=== PATIENT | female | born 1990 | race Caucasian/White ===

== ENCOUNTER → 2018-08-28 | Outpatient (CLI) | payer OTHER ==
[~2018-08-28] MED LIST: Pepcid40 MG PO
[2018-08-28 18:27] LABS: Bilirubin, Urine Neg (Neg); Blood, Urine Neg (Neg); Glucose Qualitative, Urine Neg (Neg); Ketones, Urine Neg (Neg); Leukocyte Esterase, Urine Neg (Neg); Nitrite, Urine Neg (Neg); Protein, Urine Neg (Neg); Urobilinogen, Urine NORM (Normal); pH, Urine 6.5 (5.0-8.0)
[2018-08-28 18:45] LABS: Appearance, Urine Clear (Clear); Color, Urine Yellow (P-Yellow)
== END ==
LOC: LAB SHORT 17:43 → LAB 17:43
PROVIDERS: Registered Nurse Community Health
DX: Z34.91 Encounter for supervision of normal pregnancy, unspecified, first trimester (principal)
CPT/HCPCS: 81003; 87086

== ENCOUNTER → 2018-09-22 | Outpatient (CLI) | payer OTHER ==
[2018-09-24 02:17] LABS: CHLAMYDIA TRACHOMATIS, NAA Negative (Negative); NEISSERIA GONORRHOEAE, NAA Negative (Negative)
== END ==
LOC: LAB SHORT 11:53 → LAB 11:53
PROVIDERS: Registered Nurse Community Health
DX: Z12.4 Encounter for screening for malignant neoplasm of cervix (principal); Z11.3 Encounter for screening for infections with a predominantly sexual mode of transmission; N89.8 Other specified noninflammatory disorders of vagina; R82.998 Other abnormal findings in urine
CPT/HCPCS: 87070; 87077; 87086; 87186; 87205; 87491; 87591; G0123

== ENCOUNTER → 2018-10-05 | Outpatient (CLI) | payer OTHER ==
[2018-10-05 19:13] LABS: CHOL/HDL RATIO 3.5; Cholesterol 234 mg/dL (50-200); HDL Cholesterol 67 mg/dL (>39); LDL/HDL RATIO 2.2; Low Density Lipoprotein Chol 144 mg/dL (0-110); Triglycerides 113 mg/dL (30-140); Very Low Density Lipoprot Chol 22 mg/dL (6-28)
== END ==
LOC: LAB SHORT 09:00 → LAB 09:00
PROVIDERS: Registered Nurse Community Health
DX: Z13.220 Encounter for screening for lipoid disorders (principal)
CPT/HCPCS: 80061

== ENCOUNTER → 2019-03-25 | Outpatient (CLI) | payer OTHER ==
[~2019-03-25] MED LIST changes: +Percocet 5-3251 EACH PO
== END ==
LOC: LAB SHORT 13:56 → LAB 13:56
DX: Z34.93 Encounter for supervision of normal pregnancy, unspecified, third trimester (principal)
CPT/HCPCS: 87081; 87653

== ENCOUNTER 2019-04-20 20:18 | Inpatient (IN) | payer OTHER ==
[~2019-04-20] VITALS: Ht 172.7 cm; Wt 115.5 kg
[~2019-04-20 20:18] MED LIST changes: -Percocet 5-3251 EACH PO
[2019-04-20 21:04] LABS: BASOPHILS ABSOLUTE AUTO 0.02 K/mm3 (0.00-0.23); BASOPHILS PERCENT AUTO 0 % (0-2); EOSINOPHILS ABSOLUTE AUTO 0.07 K/mm3 (0.00-0.68); EOSINOPHILS PERCENT AUTO 1 % (0-6); Hematocrit 33.9 % (33.0-51.0); Hemoglobin 11.3 g/dL (11.5-16.0); IMMATURE GRAN ABSOLUTE AUTO 0.05 K/mm3 (0.00-0.10); IMMATURE GRAN PERCENT AUTO 0 % (0-1); LYMPHOCYTES ABSOLUTE AUTO 2.53 K/mm3 (0.84-5.20); LYMPHOCYTES PERCENT AUTO 21 % (21-46); MONOCYTES ABSOLUTE AUTO 0.74 K/mm3 (0.16-1.47); MONOCYTES PERCENT AUTO 6 % (4-13); Mean Corpuscular HGB 31.1 pg (26.0-34.0); Mean Corpuscular HGB Conc 33.3 g/dL (31.5-36.5); Mean Corpuscular Volume 93 fL (80-100); Mean Platelet Volume 11.6 fL (9.1-12.4); NEUTROPHILS PERCENT AUTO 72 % (41-73); Platelet Count 256 K/mm3 (150-400); RDW Standard Deviation 44.6 fL (35.1-46.3); Red Blood Cell Count 3.63 M/mm3 (3.80-5.20); White Blood Cell Count 12.11 K/mm3 (4.00-11.30)
[2019-04-22 19:12] LABS: PO2 Cord - Arterial < 13 mmHg (16-20)
[2019-04-22 19:14] LABS: PCO2 Cord - Venous 50.5 mmHg (40-50); PO2 Cord - Venous 21.8 mmHg (28-32); pH Umbilical Cord - Venous 7.33 (7.26-7.35)
--- NOTE | 2019-04-22 19:14 | NUR ---
04/22/191913 Brijesh Venegas PT ARRIVED TO OR WITH EPIDURAL IN PLACE. PT ARRIVED TO OR WITH [facility] CATH IN PLACE. LOCAL WAS INJECTED IN OP SITE PRIOR TO SURGERY WHEN PT REPORTED FEELING SOME SHARPNESS WITH THE TEST. BABY GIRL WAS BORN AT 190. CORD BLOOD WAS SENT WITH [facility] MELY [place]IT[place] CORD SEGMENT WAS SENT WITH RT GANESH.
[2019-04-23 05:30] LABS: BASOPHILS ABSOLUTE AUTO 0.03 K/mm3 (0.00-0.23); BASOPHILS PERCENT AUTO 0 % (0-2); EOSINOPHILS ABSOLUTE AUTO 0.04 K/mm3 (0.00-0.68); EOSINOPHILS PERCENT AUTO 0 % (0-6); Hematocrit 31.3 % (33.0-51.0); Hemoglobin 10.4 g/dL (11.5-16.0); IMMATURE GRAN ABSOLUTE AUTO 0.11 K/mm3 (0.00-0.10); IMMATURE GRAN PERCENT AUTO 1 % (0-1); LYMPHOCYTES ABSOLUTE AUTO 2.47 K/mm3 (0.84-5.20); LYMPHOCYTES PERCENT AUTO 13 % (21-46); MONOCYTES ABSOLUTE AUTO 0.99 K/mm3 (0.16-1.47); MONOCYTES PERCENT AUTO 5 % (4-13); Mean Corpuscular HGB 31.1 pg (26.0-34.0); Mean Corpuscular HGB Conc 33.2 g/dL (31.5-36.5); Mean Corpuscular Volume 94 fL (80-100); NEUTROPHILS ABSOLUTE AUTO 15.74 K/mm3 (1.96-9.15); NEUTROPHILS PERCENT AUTO 81 % (41-73); Platelet Count 220 K/mm3 (150-400); RDW Standard Deviation 44.8 fL (35.1-46.3); Red Blood Cell Count 3.34 M/mm3 (3.80-5.20); White Blood Cell Count 19.38 K/mm3 (4.00-11.30)
--- NOTE | 2019-04-23 14:23 | NUR ---
CONSULT, ELIZABETH NOT YET 24 HOURS OLD, STILL SLEEPY. MOM STATES SHE HAS BF WELL A COUPLE TIMES. SHE IS CURRENTLY ASLEEP IN MOMS ARMS. INSTRUCT/DEMO SELF EBM TO HELP ENTICE A BETTER GAPE FOR LATCHING, AND FURTHER WIDENING LATCH IF SHE FEELS PINCHING. INSTRUCT IN CHANGES TO EXPECT DURING THE FIRST WEEK WITH FEEDINGS AND WITH BABY AND REFERRED TO BF BROCHURE AND BR BOOKLET FOR PHOTOS AND INFORMATION. PLEASED WITH HOW BF IS GOING SO FAR.
--- NOTE | 2019-04-23 18:35 | NUR ---
REPORT TO ONCOMING SHIFT
[2019-04-24] MEDS ORDERED: Percocet 5-3251 EACH PO (17:50)
--- NOTE | 2019-04-24 18:10 | NUR ---
Printed d/c instructions and packet given. Pt declines additional teaching by RN as she has had teaching by multiple RN's prior to d/c. Denies additional questions at this time. ID bands matched w/nb. No acute changes t/o shift. Pt d/c'd home ambulatory to care of family.
== END 2019-04-24 18:10 | disposition home or self-care (01) | DRG 788 ==
LOC: BC 20:18
PROVIDERS: Obstetrics & Gynecology; ADMIT Registered Nurse Community Health
PROC: 3E0P7VZ Introduction of Hormone into Female Reproductive, Via Natural or Artificial Opening (ICD-10-PCS; 2019-04-20)
PROC: 3E033VJ Introduction of Other Hormone into Peripheral Vein, Percutaneous Approach (ICD-10-PCS; 2019-04-21)
PROC: 3E0R3BZ Introduction of Anesthetic Agent into Spinal Canal, Percutaneous Approach (ICD-10-PCS; 2019-04-22)
PROC: 10D00Z1 Extraction of Products of Conception, Low, Open Approach (ICD-10-PCS; principal; 2019-04-22 18:00)
DX: O48.0 Post-term pregnancy (principal); O61.0 Failed medical induction of labor; Z3A.40 40 weeks gestation of pregnancy; Z37.0 Single live birth; O76 Abnormality in fetal heart rate and rhythm complicating labor and delivery
CPT/HCPCS: 36415; 51702; 82803; 85025; 86850; 86900; 86901; J0690; J1885; J2210; J2405; J2590; J2704; J2765; J3010; J7120

== ENCOUNTER → 2020-11-30 | Outpatient (CLI) | payer OTHER ==
[~2020-11-30] MED LIST changes: +Percocet 5-3251 EACH PO
[2020-12-02 00:09] LABS: CHLAMYDIA TRACHOMATIS, NAA Negative (Negative)
== END ==
LOC: LAB SHORT 18:30 → LAB 18:30
PROVIDERS: Registered Nurse Community Health
DX: Z34.93 Encounter for supervision of normal pregnancy, unspecified, third trimester (principal)
CPT/HCPCS: 87491; 87591

== ENCOUNTER → 2021-03-08 | Outpatient (CLI) | payer OTHER ==
[2021-03-08 13:17] LABS: Hematocrit 34.9 % (33.0-51.0); Hemoglobin 11.7 g/dL (11.5-16.0)
== END ==
LOC: LAB 12:04 → LAB SHORT 12:04
PROVIDERS: Registered Nurse Community Health
DX: Z33.1 Pregnant state, incidental (principal)
CPT/HCPCS: 36415; 82950; 85014; 85018

== ENCOUNTER → 2021-05-02 | Outpatient (CLI) | payer OTHER | LOC: LAB SHORT 14:30 → LAB 14:30 | DX: Z34.93 Encounter for supervision of normal pregnancy, unspecified, third trimester (principal) | CPT/HCPCS: 87081; 87150 ==

== ENCOUNTER 2021-05-25 05:41 | Inpatient (IN) | payer OTHER ==
[~2021-05-25] VITALS: Ht 172.7 cm; Wt 104.5 kg
[2021-05-25] MEDS ORDERED: PRENATAL TABLE1 EAC2 (06:06)
[2021-05-25 06:24] LABS: BASOPHILS ABSOLUTE AUTO 0.04 K/mm3 (0.00-0.23); BASOPHILS PERCENT AUTO 0 % (0-2); EOSINOPHILS ABSOLUTE AUTO 0.06 K/mm3 (0.00-0.68); EOSINOPHILS PERCENT AUTO 1 % (0-6); Hematocrit 37.2 % (33.0-51.0); Hemoglobin 12.5 g/dL (11.5-16.0); IMMATURE GRAN ABSOLUTE AUTO 0.05 K/mm3 (0.00-0.10); IMMATURE GRAN PERCENT AUTO 0 % (0-1); LYMPHOCYTES ABSOLUTE AUTO 2.67 K/mm3 (0.84-5.20); LYMPHOCYTES PERCENT AUTO 23 % (21-46); MONOCYTES ABSOLUTE AUTO 0.71 K/mm3 (0.16-1.47); MONOCYTES PERCENT AUTO 6 % (4-13); Mean Corpuscular HGB 30.9 pg (26.0-34.0); Mean Corpuscular HGB Conc 33.6 g/dL (31.5-36.5); Mean Corpuscular Volume 92 fL (80-100); Mean Platelet Volume 11.8 fL (9.1-12.4); NEUTROPHILS ABSOLUTE AUTO 8.14 K/mm3 (1.96-9.15); NEUTROPHILS PERCENT AUTO 70 % (41-73); Platelet Count 243 K/mm3 (150-400); RDW Coefficient Variation 12.9 % (11.7-14.2); RDW Standard Deviation 43.4 fL (35.1-46.3); Red Blood Cell Count 4.04 M/mm3 (3.80-5.20); White Blood Cell Count 11.67 K/mm3 (4.00-11.30)
[2021-05-25 08:33] LABS: PCO2 Cord - Arterial 61.9 mmHg (40-50); PO2 Cord - Arterial 13.7 mmHg (16-20); pH Cord - Arterial 7.29 (7.28-7.35)
--- NOTE | 2021-05-25 08:33 | NUR ---
05/25/21 0833 IsabellaChelsey Niyah [id number] DELIVERY OF VIABLE FEMALE. WEIGHT 6 LB 14 OZ ([id number]); HEAD 13.75; CHEST 13 IN; LENGTH 19.5 IN. CORD BLOOD SENT WITH Abena GONZALEZ RN; CORD SEGMENT SENT WITH Alma LUNSFORD RN.
[2021-05-25 08:35] LABS: PCO2 Cord - Venous 52.8 mmHg (40-50); PO2 Cord - Venous 25.4 mmHg (28-32); pH Umbilical Cord - Venous 7.33 (7.26-7.35)
[2021-05-26 05:10] LABS: BASOPHILS ABSOLUTE AUTO 0.06 K/mm3 (0.00-0.23); BASOPHILS PERCENT AUTO 0 % (0-2); EOSINOPHILS PERCENT AUTO 1 % (0-6); Hematocrit 33.6 % (33.0-51.0); IMMATURE GRAN ABSOLUTE AUTO 0.06 K/mm3 (0.00-0.10); IMMATURE GRAN PERCENT AUTO 0 % (0-1); LYMPHOCYTES ABSOLUTE AUTO 3.04 K/mm3 (0.84-5.20); LYMPHOCYTES PERCENT AUTO 23 % (21-46); MONOCYTES ABSOLUTE AUTO 0.81 K/mm3 (0.16-1.47); MONOCYTES PERCENT AUTO 6 % (4-13); Mean Corpuscular HGB 30.9 pg (26.0-34.0); Mean Corpuscular HGB Conc 32.7 g/dL (31.5-36.5); Mean Corpuscular Volume 94 fL (80-100); Mean Platelet Volume 11.6 fL (9.1-12.4); NEUTROPHILS ABSOLUTE AUTO 9.46 K/mm3 (1.96-9.15); NEUTROPHILS PERCENT AUTO 70 % (41-73); Platelet Count 184 K/mm3 (150-400); RDW Coefficient Variation 12.9 % (11.7-14.2); RDW Standard Deviation 44.7 fL (35.1-46.3); Red Blood Cell Count 3.56 M/mm3 (3.80-5.20); White Blood Cell Count 13.53 K/mm3 (4.00-11.30)
[2021-05-26] MEDS ORDERED: IBUP800 PO (10:35)
== END 2021-05-26 11:40 | disposition home or self-care (01) | DRG 788 ==
LOC: BC 05:41
PROVIDERS: ADMIT Obstetrics & Gynecology
PROC: 10D00Z1 Extraction of Products of Conception, Low, Open Approach (ICD-10-PCS; principal; 2021-05-25 07:30)
DX: O34.211 Maternal care for low transverse scar from previous cesarean delivery (principal); Z3A.39 39 weeks gestation of pregnancy; Z37.0 Single live birth; Z67.20 Type B blood, Rh positive
CPT/HCPCS: 36415; 82803; 85025; 86850; 86900; 86901; A9270; J0690; J1885; J2370; J2405; J2590; J2765; J3010; J7120